=== PATIENT | female | born 1965 | race Caucasian/White ===

== ENCOUNTER → 2020-09-27 | Outpatient (CLI) | payer OTHER ==
--- NOTE | 2020-09-27 12:06 | RAD ---
Exam Date: 09/27/2020 11:32 AM XR LT WRIST [id number] Indication: Reason: LEFT WRIST PAIN / Spl. Instructions: / History: . FINDINGS/ IMPRESSION: No acute fracture or dislocation. Mild degenerative change are noted. Alignment is maintained. The soft tissues are within normal limits. Electronically signed by: William Guevara MD (09/27/2020 12:03 PM) [place]
== END ==
LOC: PMG 11:06
PROVIDERS: ATTEND Nurse Practitioner Family
DX: M19.032 Primary osteoarthritis, left wrist (principal)
CPT/HCPCS: 73110